=== PATIENT | female | born 1950 | race American Indian/Alaskan Native ===

== ENCOUNTER 2025-02-17 16:57 | Emergency (ER) | payer MEDICARE, MEDICAID, SELFPAY ==
--- NOTE | 2025-02-17 16:58 | EKG_ITS ---
[facility] Test Date: 2025-02-17 Pat Name: MATT BAY Department: Room: - Gender: Female Technology Methodology Consultant: : 1950 Requested By: ED Temporary Provider Order Number: [id number] Reading MD: ED Temporary Provider Measurements Intervals [place] Rate: 75 P: 26 TX: 183 QRS: -39 QRSD: 95 T: 37 QT: 397 QTc: 444 Interpretive Statements SINUS RHYTHM LEFT AXIS DEVIATION [QRS AXIS < -30] POSSIBLE ANTERIOR MYOCARDIAL INFARCTION , PROBABLY OLD [30 ms Q WAVE IN V3/V4, OR R < 0.2 mV IN V4] No previous ECG available for comparison /store/S0/[id number]/ecg/[id number]
[2025-02-17 17:00] VITALS: PULSE 87; RESP 20; O2SAT 98
--- NOTE | 2025-02-17 17:00 | PC.NURSE ---
BIBA; PER EMS, PT C/O CHEST PAIN STERNAL; PAIN RADIATED TO THROAT. PT DID REPORT HAVING X1 EMESIS EPISODE AT HOME. PT GIVEN 162 MG ASPIRIN, 0.4 NITRO SL X3, 1-INCH NITRO PASTE EN ROUTE. EKG DONE EN ROUTE. PMH OF HIGH BP & SCIATIC NERVE PAIN. PT CONNECTED TO MONITORS AT THIS TIME.
[2025-02-17 17:04] VITALS: BP 157/100; PULSE 101; RESP 16; TEMP 36.9; O2SAT 96; BMI 46.3
--- NOTE | 2025-02-17 17:14 | PD.EDCHEST ---
ED Chest Pain RME/HPI General Chief Complaint: Chest Pain Stated Complaint: CHEST PAIN Time Seen by Provider: 02/17/25 17:09 Arrival date/time: 02/17/25 16:57 Limitations: no limitations RME / HPI RME / HPI narrative: DR. ENGLISH MAIN ED EVALUATION: 74 year old female presents to the Emergency Department [facility] with complaint of chest pain that radiates upwards all the way to her throat today. She states her pain started after she ate rice and a dinner roll. Pain is constant, described as pressure, and rated moderate. Associated symptoms include shortness of breath. Prehospital treatment included ASA and nitro per EMS. PMHx: Hypertension and sciatica. Family history is significant for HI, her father at age 70. Social Hx: No tobacco, alcohol, or substance use. Related Data Home Medications ?Medication ?Instructions ?Recorded ?Confirmed lisinopril 10 mg tablet 10 mg PO QDAY #0 tabs 02/19/15 Previous Rx's ?Medication ?Instructions ?Recorded Hydrocodone/Acetaminophen * (NORCO 1 tab PO Q6H PRN PAIN #28 tabs 01/25/17 5/325 *) ofloxacin 0.3 % eye drops 1 drp ophthalmic (eye) QID #10 mL 10/31/23 acetaminophen 300 mg-codeine 30 mg 2 tab PO Q8H PRN pain #20 tabs 02/17/25 tablet famotidine 40 mg tablet 40 mg PO .bedtime #30 tabs 02/17/25 omeprazole 40 mg capsule,delayed 40 mg PO QDAY #30 caps 02/17/25 release ondansetron 4 mg disintegrating 4 mg PO TID PRN nausea and 02/17/25 tablet vomiting 30 days #10 tabs Allergies Allergy/AdvReac Type Severity Reaction Status Date / Time NKA* Allergy Uncoded 02/17/25 17:11 Review of Systems Review of Systems Systems Reviewed: All systems reviewed, normal except as documented Past Medical History Past Medical History CARDIAC: Positive Hypertension Family History FAMILY HISTORY: Positive Family Cardiac Disorders and Family Cancer (PT'S DAD LUNG CANCER) Surgical History SURGICAL: Positive Tubal Ligation Social History SMOKING STATUS: Never smoker SUBSTANCE USE: does not use ALCOHOL: Never ED Exam General Limitations: Present no limitations General appearance: Present alert, in no apparent distress and obese Head Head exam: Present atraumatic, normocephalic and normal inspection Eye Eye exam: Present normal appearance, PERRL and EOMI ENT ENT exam: Present normal exam, normal oropharynx and mucous membranes moist Neck Neck exam: Present normal inspection, full ROM and trachea midline Chest Chest inspection: Present normal inspection and symmetric chest wall rise Respiratory Respiratory exam: Present normal lung sounds bilaterally Cardiovascular Cardiovascular exam: Present regular rate, normal rhythm and normal heart sounds Abdominal Exam Abdominal exam: Present soft, normal bowel sounds and other (obese); Absent guarding or rebound Extremities Exam Extremities exam: Present normal inspection and full ROM Back Exam Back exam: Present normal inspection and full ROM Neurological Exam Neurological exam: Present alert, oriented X3 and CN II-XII intact Psychiatric Psychiatric exam: Present normal affect and normal mood Skin Skin exam: Present warm, dry, intact and normal color Course Quality Measures none Orders Category Date Time Status Mortgage Collector STAT Care 02/17/25 17:20 Completed Continuous Pulse Oximetry ONCE Care 02/17/25 17:20 Completed EKG (ED ONLY) *Do not use* NOW Care 02/17/25 16:59 Completed Insert IV STAT Care 02/17/25 17:20 Completed EKG (ED Only) Stat Exams 02/17/25 16:58 Draft XR chest 1V portable Stat Exams 02/17/25 17:20 Completed B-Type Natriuretic Peptide Stat Lab 02/17/25 17:25 Completed CBC Stat Lab 02/17/25 17:25 Completed Comprehensive Metabolic Panel Stat Lab 02/17/25 17:25 Completed Magnesium Stat Lab 02/17/25 17:25 Completed Partial Thromboplastin Time Stat Lab 02/17/25 17:25 Completed Prothrombin Time with INR Stat Lab 02/17/25 17:25 Completed Troponin I Stat Lab 02/17/25 17:25 Completed Troponin I Stat Lab 02/17/25 19:37 Completed UA, C/S IF [Urinalysis, C/S if Indicated] Stat Lab 02/17/25 19:29 Completed Famotidine Inj [Pepcid Inj] Med 02/17/25 18:18 Discontinued 20 mg IVP X1 ONE Metoprolol Tartrate Inj [Lopressor Inj] Med 02/17/25 17:19 Discontinued 5 mg IVP X1 ONE Morphine Inj Med 02/17/25 18:18 Discontinued 4 mg IVP X1 ONE Nitroglycerin [Nitrostat 1/150] Med 02/17/25 17:19 Discontinued 0.4 mg SL Q5M PRN Ondansetron Inj [Zofran Inj] Med 02/17/25 17:19 Discontinued 4 mg IVP Q1HR PRN Ondansetron Inj [Zofran Inj] Med 02/17/25 18:18 Discontinued 4 mg IVP X1 ONE Pantoprazole Inj [Protonix Inj] Med 02/17/25 17:22 Discontinued 40 mg IVP X1 ONE Sodium Chloride 0.9% 1000 ml [Ns] 1,000 ml Med 02/17/25 17:19 Discontinued IV 100 mls/hr Oxygen Delivery NOW RT 02/17/25 17:20 Completed Vital Signs Vital signs: Vital Signs Temperature 98.4 F 02/17/25 17:04 Pulse Rate 101 H 02/17/25 17:04 Respiratory Rate 16 02/17/25 17:04 Blood Pressure 157/100 H 02/17/25 17:04 Pulse Oximetry (%) 96 02/17/25 17:04 Oxygen Delivery Method Room Air 02/17/25 17:04 Chest Pain MDM Narrative MDM Narrative:: IGeri am scribing for and in the presence of Dr. English. Patient data External records reviewed:: [facility] previous records and EMS form Clinical information provided by:: patient and EMS Social determinants that could affect healthcare access:: none Patient has the following chronic illnesses:: PMHx: Hypertension and sciatica. Family history is significant for HI, her father at age 70. Social Hx: No tobacco, alcohol, or substance use. How is presenting disease/condition affected by chronic disease/condition?: uneffected by Evaluation data The following diagnostics were reviewed and interpreted by me:: lab results, radiology exam(s) and EKG tracing(s) (My interpretation: EKG performed at 1705 hours, sinus rhythm, rate 75, left axis deviation, poor R wave progression V2-V5) Lab and/or radiology exams considered but not ordered:: none Interpretation Summary: My interpretation: EKG performed at 1705 hours, sinus rhythm, rate 75, left axis deviation, poor R wave progression V2-V5 Pending rest of diagnostic tests. Medications / Prescriptions Medications or Prescriptions considered but not ordered:: none Medication administrations:: Medication Administration History Discontinued Medications Famotidine (Famotidine Inj 10 Mg/Ml Vial 2 Ml) 20 mg IVP X1 ONE Stop: 02/17/25 18:19 Last Admin: 02/17/25 19:00 Dose: 20 mg Documented By: GM Sodium Chloride (Ns) 1,000 mls @ 100 mls/hr IV .Q10H ONE Stop: 02/18/25 03:18 Last Admin: 02/17/25 17:36 Dose: 100 mls/hr Documented By: GM Metoprolol Tartrate (Metoprolol Tartrate Inj 1 Mg/Ml Amp 5 Ml) 5 mg IVP X1 ONE Stop: 02/17/25 17:20 Last Admin: 02/17/25 17:37 Dose: Not Given Documented By: GM Non-Admin Reason: Contraindicated Morphine Sulfate (Morphine Sulf Inj 10 Mg/Ml Vial) 4 mg IVP X1 ONE Stop: 02/17/25 18:19 Last Admin: 02/17/25 18:59 Dose: 4 mg Documented By: GM Nitroglycerin (Nitroglycerin 0.4 Mg Subl Btl #25) 0.4 mg SL Q5M PRN PRN Reason: CHEST PAIN Ondansetron HCl (Ondansetron Inj 2 Mg/Ml Inj 2 Ml) 4 mg IVP Q1HR PRN PRN Reason: PERSISTENT NAUSEA OR VOMITING Ondansetron HCl (Ondansetron Inj 2 Mg/Ml Inj 2 Ml) 4 mg IVP X1 ONE; Protocol Stop: 02/17/25 18:19 Last Admin: 02/17/25 19:00 Dose: 4 mg Documented By: GM Pantoprazole Sodium (Pantoprazole Inj 40 Mg Vial) 40 mg IVP X1 ONE Stop: 02/17/25 17:23 Last Admin: 02/17/25 17:28 Dose: 40 mg Documented By: GM see above if any Consultations Consultation(s) initiated? (list below): No Diagnosis Chest Pain Differential Diagnosis: atypical chest pain, costochondritis, chest pain and biliary colic Most likely diagnosis given after review of the tests above:: No official diagnoses at this time, still pending diagnostic tests. Patient signout to the night shift supervisor provider. Admission Indicated Admission indicated?: not indicated Explain why admission is indicated or not indicated:: No final disposition plan at this time, still pending diagnostic tests. Patient signout to the night shift supervisor provider. Admission Request Was there a request for admission?: No Disposition Plan Disposition Plan: other (specify) (Patient signed out to Dr. Haas, pending entire work-up.) Discharge Plan Plan Patient Disposition: HOME (Self Care) Prescriptions/Referrals Prescriptions/Med Rec: New famotidine 40 mg tablet 40 mg PO .bedtime Qty: 30 0RF acetaminophen-codeine 300-30 mg tablet 2 tab PO Q8H MDD 6 PRN (Reason: pain) Qty: 20 0RF omeprazole 40 mg capsule,delayed release(DR/EC) 40 mg PO QDAY Qty: 30 0RF ondansetron 4 mg tablet,disintegrating 4 mg PO TID PRN (Reason: nausea and vomiting) 30 Days Qty: 10 0RF No Action lisinopril 10 MG tablet 10 mg PO QDAY Qty: 0 Hydrocodone/Acetaminophen * (NORCO 5/325 *) 1 TAB tablet 1 tab PO Q6H PRN (Reason: PAIN) Qty: 28 0RF ofloxacin 0.3 % drops 1 drp ophthalmic (eye) QID Qty: 10 0RF Referrals: oJse Chandler PA-C [Primary Care Provider] - In 1 week Problem List Clinical Impression: Stomach ulcer Patient/Caregiver Discharge Instructions Discharge Activity: activity as tolerated Education Materials: ED Gastritis (Adult) Additional Instructions: Discharge instructions from Dr. Haas: ?After evaluation, your symptoms are due to stomach ulcer (see attached handout).? There is no emergency life-threatening condition, such as heart attack. ?To help heal the ulcer, take Omeprazole 40 mg every morning and Famotidine 40 mg at bedtime for a week then as needed. ?Zofran for nausea/vomiting.? Clear liquid diet for 24 hours.? Then slowly advance diet as tolerated. --Tylenol with codeine for severe pain. ?Avoid food and beverages that can trigger and worsen ulcers.? See attached handout. ?See a private doctor on 02/20/2025 for recheck and further care. To make sure there is no serious underlying heart condition, ask to help you get more tests for your heart that cannot be done here in the ER. Such as Holter Monitor (cardiac monitoring at home from a day to even a month), heart stress test (on treadmill or with medication), echocardiogram (imaging of your heart structures), heart catherization (checking for blockages in your heart arteries), and a referral to see a Food Production Worker. To make sure there is no serious intra-abdominal condition, ask for help with more investigation not available here in the ER.? Such as EGD or scoping the stomach, colonoscopy or scoping the colon, and referral to see manager drug. ?Seek immediate medical care with worsening or with any concerns. Print Language: Cook Islander Stand Alone Forms: Helen Award Info., Patient Portal Info Letter
--- NOTE | 2025-02-17 17:20 | XR_ITS ---
Examination: AP chest single view TECHNIQUE: AP portable upright chest single view Date and time: February 17, 2025 at 1731 hours INDICATIONS: Shortness of chest pain today FINDINGS: Normal heart size. The lungs are clear. The osseous structures are intact IMPRESSION: No active disease
[2025-02-17 17:32] LABS: Basophils # (Auto) 0.1 Thou/mm3 (0.0-0.2); Basophils % (Auto) 1 % (0-2.5); Eosinophils # (Auto) 0.3 Thou/mm3 (0.0-0.5); Eosinophils % (Auto) 4 % (0-10); Hematocrit 38.7 % (36.0-46.0); Hemoglobin 13.0 g/dL (12.0-16.0); Immature Granulocytes Auto 0.03 Thou/mm3 (0.00-0.00); Lymphocytes # (Auto) 3.2 Thou/mm3 (1.0-4.8); Lymphocytes % (Auto) 36 % (10-50); Mean Corpuscular HGB Conc 33.6 g/dl (31.0-37.0); Mean Corpuscular Hemoglobin 31.3 pg (25.0-35.0); Mean Corpuscular Volume 93 fL (80-100); Monocytes # (Auto) 0.6 Thou/mm3 (0.0-0.8); Monocytes % (Auto) 7 % (0-12); Neutrophils # (Auto) 4.6 Thou/mm3 (1.8-7.7); Neutrophils % (Auto) 52 % (37-80); Nucleated Red Blood Cell # 0.00 Thou/mm3 (0.00-0.00); Nucleated Red Blood Cell % 0 /100 WBC (0); Platelet Count 307 Thou/mm3 (140-440); RDW Standard Deviation 46.0 fL (36.4-46.3); Red Blood Count 4.16 Miln/mm3 (4.00-5.20); White Blood Count 8.9 Thou/mm3 (3.6-11.0)
[2025-02-17] MEDS: SODIUM CHLORIDE 0.9% 1000 ML 1,000 ML 100 ML IV (17:36)
[2025-02-17 17:37] VITALS: BP 120/57; PULSE 67
[2025-02-17 17:38] VITALS: PULSE 67; RESP 15; RESP 97
[2025-02-17 17:54] LABS: Alanine Aminotransferase 30 U/L (10-49); Albumin, Serum 4.0 gm/dL (3.4-4.8); Albumin/Globulin Ratio 1.6 (1.2-2.2); Alkaline Phosphatase 81 U/L (46-116); Anion Gap 9 (7-16); Aspartate Amino Transferase 26 U/L (0-34); BUN/Creatinine Ratio 20 Ratio (12-20); Bilirubin,Total 0.8 mg/dL (0.3-1.2); Blood Urea Nitrogen 18 mg/dL (9-23); Calcium 9.1 mg/dL (8.3-10.6); Calcium (Corrected) 9.1 mg/dL (8.5-10.1); Carbon Dioxide 22.7 mMol/L (20.0-31.0); Chloride 113 mMol/L (98-107); Creatinine (Component) 0.9 mg/dL (0.6-1.3); Estimated Creatinine Clearance 67.8 mL/min (>60); Globulin 2.5 gm/dL (2.3-3.5); Glucose 115 mg/dL (74-106); Magnesium 2.1 mg/dL (1.6-2.6); Osmolality,Calculated 291 (275-295); Potassium 3.4 mMol/L (3.4-5.1); Sodium 145 mMol/L (136-145); Total Protein 6.5 gm/dL (5.7-8.2); Troponin I < 0.002 ng/mL (0.0-0.045); eGFR > 60 See Note
[2025-02-17 18:07] LABS: B-Type Natriuretic Peptide < 20 pg/mL (0-100)
[2025-02-17 18:09] LABS: INR 1.0 (0.9-1.3); Partial Thromboplastin Time 25.1 Seconds (22.0-36.0); Prothrombin Time 10.9 Seconds (9.0-12.2)
[2025-02-17 18:10] VITALS: BP 144/72; PULSE 64; RESP 19; TEMP 36.6; O2SAT 98
--- NOTE | 2025-02-17 18:21 | EDNOTE_ITS ---
Emergency Room Addendum <Peace Mcghee - Last Filed: 02/17/25 20:22> Addendum Narrative: I took over the care from previous shift physician at 6 PM on 02/17/2025. See previous notes for complete H & P and ED course. I reviewed all diagnostic test results. My interpretation of the chest x-ray is NAD. Blood tests are Diagnoses include: Stomach Ulcer. Treatment here included Pepcid 20 mg, Zofran 4 mg, Morphine 4 mg. Based on my best medical judgment, made decision no further evaluation or treatment indicated at this time. Patient understands and agrees to the discharge instructions customized and printed, see below. Discharge instructions from Dr. Haas: ?After evaluation, your symptoms are due to stomach ulcer (see attached handout). There is no emergency life-threatening condition, such as heart attack. ?To help heal the ulcer, take Omeprazole 40 mg every morning and Famotidine 40 mg at bedtime for a week then as needed. ?Zofran for nausea/vomiting. Clear liquid diet for 24 hours. Then slowly advance diet as tolerated. --Tylenol with codeine for severe pain. ?Avoid food and beverages that can trigger and worsen ulcers. See attached handout. ?See a private doctor on 02/20/2025 for recheck and further care. To make sure there is no serious underlying heart condition, ask to help you get more tests for your heart that cannot be done here in the ER. Such as Holter Monitor (cardiac monitoring at home from a day to even a month), heart stress test (on treadmill or with medication), echocardiogram (imaging of your heart structures), heart catherization (checking for blockages in your heart arteries), and a referral to see a Jetting Machine Operator. To make sure there is no serious intra-abdominal condition, ask for help with more investigation not available here in the ER. Such as EGD or scoping the stomach, colonoscopy or scoping the colon, and referral to see physical metallurgist. ?Seek immediate medical care with worsening or with any concerns. Koby Haas MD <Koby Haas MD - Last Filed: 02/17/25 20:43> Addendum Narrative: I took over the care from previous shift physician, Dr. Powell, at 6 PM on 02/17/2025. See previous notes for complete H & P and ED course. My exam is remarkable for epigastric tenderness. I reviewed all diagnostic test results. My interpretation of the EKG is sinus rhythm with no acute ST?T changes. My interpretation of the chest x-ray is NAD. Blood tests and urine test unremarkable. Diagnoses include: Stomach Ulcer. Treatment here from me included Pepcid 20 mg, Zofran 4 mg, Morphine 4 mg. Significant improvement noted. Recommended more outpatient workup. Based on my best medical judgment, made decision no further evaluation or treatment indicated at this time. Patient understands and agrees to the d ischarge instructions customized and printed, see below. Discharge instructions from Dr. Haas: ?After evaluation, your symptoms are due to stomach ulcer (see attached handout). There is no emergency life-threatening condition, such as heart attack. ?To help heal the ulcer, take Omeprazole 40 mg every morning and Famotidine 40 mg at bedtime for a week then as needed. ?Zofran for nausea/vomiting. Clear liquid diet for 24 hours. Then slowly advance diet as tolerated. --Tylenol with codeine for severe pain. ?Avoid food and beverages that can trigger and worsen ulcers. See attached handout. ?See a private doctor on 02/20/2025 for recheck and further care. To make sure there is no serious underlying heart condition, ask to help you get more tests for your heart that cannot be done here in the ER. Such as Holter Monitor (cardiac monitoring at home from a day to even a month), heart stress test (on treadmill or with medication), echocardiogram (imaging of your heart structures), heart catherization (checking for blockages in your heart arteries), and a referral to see a Jetting Machine Operator. To make sure there is no serious intra-abdominal condition, ask for help with more investigation not available here in the ER. Such as EGD or scoping the stomach, colonoscopy or scoping the colon, and referral to see physical metallurgist. ?Seek immediate medical care with worsening or with any concerns. Koby Haas MD
[2025-02-17] MEDS: MORPHINE SULF INJ 10 MG/ML VIAL 4 MG IVP (18:59)
[2025-02-17] MEDS: FAMOTIDINE INJ 10 MG/ML VIAL 2 ML 20 MG IVP (19:00)
[2025-02-17] MEDS: ONDANSETRON INJ 2 MG/ML INJ 2 ML 4 MG IVP (19:00)
[2025-02-17 19:33] LABS: Collection Type, Urine Clean Catch
[2025-02-17 19:39] LABS: Bilirubin,Urine Negative (Negative); Blood,Urine Negative (Negative); Clarity,Urine Clear (Clear/Hazy); Color,Urine Lt-Yellow (Lt Yel-Yel); Culture Indicated,Urine Not Indicated; Glucose, Urine Negative (Negative); Ketones,Urine Negative (Negative); Leukocyte Esterase,Urine Negative (Negative); Nitrite,Urine Negative (Negative); PH,Urine 5.5 (5.0-7.0); Protein,Urine Negative (Neg - Trace); RBC,Urine 2 /hpf (0-3); Specific Gravity,Urine 1.024 (1.001-1.035); Squamous Epithelial Cell,Urine 1 /hpf (0-5); Urobilinogen,Urine Negative mg/dL (0.0-1.0); WBC,Urine 1 /hpf (0-5)
[2025-02-17 20:02] LABS: Troponin I < 0.020 ng/mL (0.0-0.045)
[2025-02-17 20:27] VITALS: BP 144/68; PULSE 62; RESP 20; O2SAT 95
== END 2025-02-17 20:28 | disposition home or self-care (01) ==
PROVIDERS: Family Medicine; Emergency Provider Emergency Medicine; PCP Physician Assistant
DX: K25.9 Gastric ulcer, unspecified as acute or chronic, without hemorrhage or perforation (principal); R94.31 Abnormal electrocardiogram [ECG] [EKG]; R07.9 Chest pain, unspecified; I10 Essential (primary) hypertension
CPT/HCPCS: 36415; 71045; 80053; 81001; 83735; 83880; 84484; 85025; 85610; 85730; 93005; 96374; 96375; 99284; J2270; J2405; J2470; J3490; J7030